=== PATIENT | female | born 1990 | race Two or more races ===

== ENCOUNTER 2019-06-12 06:53 | Day surgery (SDC) | payer MEDICAID ==
[2019-06-06 11:59] LABS: Basophils # (auto) 0 uL; Basophils % (auto) 0.5 % (0.0-2.0); Eosinophils # (auto) 0.1 uL; Eosinophils % (auto) 1.1 % (0.0-7.0); Hematocrit 41.7 % (36.0-46.0); Hemoglobin 13.8 g/dL (12.2-16.2); Lymphocytes # (auto) 1.2 uL; Lymphocytes % (auto) 20.1 % (10.0-50.0); Mean Corpuscular Hemoglobin 27.5 pg (28.0-32.0); Mean Corpuscular Hgb Conc. 33.1 g/dL (32.0-36.0); Mean Corpuscular Volume 82.9 fL (80.0-100.0); Monocytes # (auto) 0.2 uL; Monocytes % (auto) 3.9 % (0.0-12.0); Neutrophils # (auto) 4.4 uL; Neutrophils % (auto) 74.4 % (37.0-80.0); Platelet Count (auto) 274 10^3/uL (140-450); Red Blood Cells 5.03 10^6/uL (4.0-5.20); Red Cell Distribution Width 19.6 % (11.8-14.3); White Blood Cell 5.9 10^3/uL (4.4-10.8)
[2019-06-06 12:18] LABS: Albumin 3.9 g/dL (3.4-5.0); Calcium 9.1 mg/dL (8.5-10.1); Potassium 3.5 mmol/L (3.5-5.1)
[2019-06-06 12:22] LABS: BUN/Creatinine Ratio 16.9; Bilirubin, Total 0.2 mg/dL (0.2-1.0); Total Protein 8.1 g/dL (6.4-8.2)
[2019-06-06 12:27] LABS: Urine Bacteria NONE SEEN /hpf (None Seen); Urine Blood Negative /uL (Negative); Urine Mucus FEW (None Seen); Urine Specific Gravity 1.026 (1.001-1.035); Urine WBC 1 /hpf (0 - 5)
[2019-06-06 12:47] LABS: Partial Thromboplastin Time 26.4 sec (23.64-32.05)
[2019-06-06 14:14] LABS: INR 0.96 (0.9-1.15)
[~2019-06-12] VITALS: Ht 162.6 cm; Wt 70.8 kg
[2019-06-12] MEDS ORDERED: ceFAZolin 1GM/50ML 50 ML IV ONE (07:04)
[2019-06-12] MEDS ORDERED: ONDANSETRON HCL 4 MG/2 ML VIAL ONE (07:48)
[2019-06-12] MEDS ORDERED: PROPOFOL 10 MG/ML 20 ML IV ONE (07:48)
[2019-06-12] MEDS ORDERED: fentaNYL CITRATE 100 MCG/2 ML VL ONE (07:48)
[2019-06-12] MEDS ORDERED: MIDAZOLAM HCL 1MG/1ML-2 ML VIAL ONE (07:48)
[2019-06-12] MEDS ORDERED: MEPERIDINE HCL (25 MG/ML) 1ML VIAL ONE (07:48)
[2019-06-12] MEDS ORDERED: SODIUM CHLORIDE LOCK 10 ML ONE (07:48)
[2019-06-12] MEDS ORDERED: LIDOCAINE 2% (LOCAL ANESTH.) PF 5ml SDV ONE (07:49)
[2019-06-12] MEDS ORDERED: LIDOCAINE HCL 2% TOP JELLY 5ML TOP ONE (07:49)
[2019-06-12] MEDS ORDERED: ROPIVACAINE 0.5% (5MG/ML) 20ML AMPULE IJ ONE (08:24)
[2019-06-12] MEDS ORDERED: HYDROmorphone HCL 2 MG/ML VL ONE (10:13)
[2019-06-12] MEDS ORDERED: fentaNYL CITRATE 100 MCG/2 ML VL IV PRN (10:15)
[2019-06-12] MEDS: HYDROmorphone HCL 2 MG/ML VL IV PRN ×4 (10:15→10:45)
[2019-06-12] MEDS ORDERED: KETOROLAC TROMETH 30 MG/ML 1ML VIAL IV ONE (10:15)
[2019-06-12] MEDS ORDERED: METOCLOPRAMIDE HCL 5MG/ml INJ 2ml VIAL IV PRN (10:15)
[2019-06-12 11:09] VITALS: BP 119/65
== END 2019-06-12 11:29 | disposition home or self-care (01) ==
LOC: SUR 06:53
PROVIDERS: ATTEND Podiatrist Foot & Ankle Surgery
DX: Q66.52 Congenital pes planus, left foot (principal); D64.9 Anemia, unspecified
CPT/HCPCS: 0335T; 28296; 29999; 36415; 73620; 80053; 81001; 84702; 85025; 85610; 85730; C1713; C1776; J0690; J1170; J1885; J2001; J2175; J2250; J2405; J2704; J2795; J3010

== ENCOUNTER → 2019-10-09 | Day surgery (SDC) | payer MEDICAID ==
[2019-10-07 13:47] LABS: Basophils # (auto) 0 uL; Eosinophils # (auto) 0.1 uL; Hemoglobin 12.9 g/dL (12.2-16.2); Monocytes # (auto) 0.5 uL; Monocytes % (auto) 8.2 % (0.0-12.0)
[2019-10-07 13:48] LABS: Basophils % (auto) 0.5 % (0.0-2.0); Eosinophils % (auto) 1.3 % (0.0-7.0); Hematocrit 40.8 % (36.0-46.0); Lymphocytes # (auto) 1.6 uL; Lymphocytes % (auto) 25.7 % (10.0-50.0); Mean Corpuscular Hemoglobin 26.5 pg (28.0-32.0); Mean Corpuscular Hgb Conc. 31.6 g/dL (32.0-36.0); Mean Corpuscular Volume 83.6 fL (80.0-100.0); Neutrophils # (auto) 4.1 uL; Neutrophils % (auto) 64.3 % (37.0-80.0); Platelet Count (auto) 310 10^3/uL (140-450); Red Blood Cells 4.89 10^6/uL (4.0-5.20); Red Cell Distribution Width 13.9 % (11.8-14.3); White Blood Cell 6.4 10^3/uL (4.4-10.8)
[2019-10-07 13:54] LABS: Urine Bacteria NONE SEEN /hpf (None Seen); Urine Blood 1+ /uL (Negative); Urine Specific Gravity 1.012 (1.001-1.035); Urine WBC <1 /hpf (0 - 5)
[2019-10-07 14:02] LABS: INR 1.01 (0.9-1.15); Partial Thromboplastin Time 24.8 sec (23.64-32.05)
[2019-10-07 14:20] LABS: Calcium 8.9 mg/dL (8.5-10.1); Potassium 4.7 mmol/L (3.5-5.1)
[2019-10-07 14:24] LABS: BUN/Creatinine Ratio 6.5; Bilirubin, Total 0.1 mg/dL (0.2-1.0); Total Protein 7.7 g/dL (6.4-8.2)
[~2019-10-09] VITALS: Ht 162.6 cm; Wt 72.6 kg
[~2019-10-09] MED LIST: MIDAZOLAM HCL 1MG/1ML-2 ML VIAL ONE; ONDANSETRON HCL 4 MG/2 ML VIAL IV PRN; PROPOFOL 10 MG/ML 20 ML IV ONE; ROPIVACAINE 0.5% (5MG/ML) 20ML AMPULE IJ ONE; ceFAZolin 1GM/50ML 50 ML IV ONE; ePHEDrine SULFATE 50 MG/ML AMP IV PRN; fentaNYL CITRATE 100 MCG/2 ML VL IV ONE; fentaNYL CITRATE 100 MCG/2 ML VL IV PRN; fentaNYL CITRATE 100 MCG/2 ML VL ONE; hydrALAZINE HCL 20 MG/ML VL IV PRN
[2019-10-09 11:06] VITALS: BP 122/78
== END | disposition home or self-care (01) ==
LOC: SUR 07:26
PROVIDERS: ATTEND Podiatrist Foot & Ankle Surgery
DX: T84.213A Breakdown (mechanical) of internal fixation device of bones of foot and toes, initial encounter (principal); L90.5 Scar conditions and fibrosis of skin; Q66.51 Congenital pes planus, right foot; J45.909 Unspecified asthma, uncomplicated; Z98.890 Other specified postprocedural states
CPT/HCPCS: 20680; 28725; 29999; 36415; 73620; 80053; 81001; 84702; 85025; 85610; 85730; 88300; C1769; C1776; J0690; J2250; J2704; J2795; J3010; J7030; L3260